=== PATIENT | female | born 1955 | race Caucasian/White ===

== ENCOUNTER 2016-11-13 19:43 | Observation (INO) | payer BC ==
[2016-11-13 19:49] VITALS: BMI 30.9
--- NOTE | 2016-11-13 19:49 | PDOC ---
History of Present Illness - General Chief Complaint: Chest Pain Stated Complaint: CHEST TIGHTNESS Time Seen by Provider: 11/13/16 19:48 - History of Present Illness Initial Comments: 11/13/16 20:15 Patient is a 61 year old female with significant medical hx of possible fibromyalgia who is presenting to the ED with three days of bilateral chest discomfort. The patient's chest discomfort is characterized as a "tightness" that is waxing and waning. Her symptoms worsen when she lies down and relieves when she stands up. The patient denies associative shortness of breath, diaphoresis, injury, or recent heavy exertional activity. Tonight the patient came home from work with a headache that relieved after she took a nap. She decided to come to the ED tonight because her chest pain returned. 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 She complains of loss of appetite for the past three days, but denies any fever, chills, body aches, nausea, vomiting, diarrhea, or changes in urination. Last stress test: two years ago. (Juana Bridges) Past History - Past Medical History Thyroid Disease: No - Immunization History Immunization Up to Date: Yes - Psycho/Social/Smoking Cessation Hx Anxiety: No Suicidal Ideation: No Smoking History: Never smoked Number of Cigarettes Smoked Daily: 0 Hx Alcohol Use: No Substance Use Type: None - Past Medical History Allergies/Adverse Reactions: Allergies Allergy/AdvReac Type Severity Reaction Status Date / Time No Known Allergies Allergy Unverified 01/13/14 06:04 Home Medications: Ambulatory Orders NK [No Known Home Medication] 11/13/16 Review of Systems - Review of Systems Comments:: 11/13/16 20:19 CONSTITUTIONAL: Present: loss of appetite Absent: fever, chills, diaphoresis, generalized weakness, malaise HEENT: Absent: rhinorrhea, nasal congestion, throat pain, throat swelling, difficulty swallowing, mouth swelling, ear pain, eye pain, visual changes CARDIOVASCULAR: Present: chest pain Absent: syncope, palpitations, irregular heart rate, lightheadedness, peripheral edema RESPIRATORY: Absent: cough, shortness of breath, dyspnea with exertion, orthopnea, wheezing, stridor, hemoptysis GASTROINTESTINAL: Absent: abdominal pain, abdominal distension, nausea, vomiting, diarrhea, constipation, melena, hematochezia GENITOURINARY: Absent: dysuria, frequency, urgency, hesitancy, hematuria, flank pain, genital pain MUSCULOSKELETAL: Absent: myalgia, arthralgia, joint swelling SKIN: Absent: rash, itching, pallor HEMATOLOGIC/IMMUNOLOGIC: Absent: easy bleeding, easy bruising, lymphadenopathy, frequent infections ENDOCRINE: Absent: unexplained weight gain, unexplained weight loss, heat intolerance, cold intolerance NEUROLOGIC: Present: headache Absent: focal weakness or paresthesia, dizziness, unsteady gait, seizure, mental status changes, bladder or bowel incontinence. PSYCHIATRIC: Absent: anxiety, depression, suicidal or homicidal ideation, hallucinations (Juana Bridges) *Physical Exam - Vital Signs Last Vital Signs Temp Pulse Resp BP Pulse Ox 97.1 F L 58 L 20 142/70 98 11/13/16 23:42 11/13/16 23:42 11/13/16 23:42 11/13/16 23:42 11/13/16 23:42 - Physical Exam Comments: 11/13/16 20:21 GENERAL: The patient is awake, alert, and fully oriented, in no acute distress. HEAD: Normal with no signs of trauma. EYES: Pupils equal, round and reactive to light, extraocular movements intact, sclera anicteric, conjunctiva clear with no pallor. ENT: Ears normal, nares patent, oropharynx clear without exudates. Moist mucous membranes. NECK: Normal range of motion, supple without lymphadenopathy, JVD, or masses. LUNGS: Breath sounds equal, clear to auscultation bilaterally. No wheeze/ crackles. HEART: Regular rate and rhythm, normal S1 and S2 without murmur or rub. ABDOMEN: Soft/nontender/nondistended. BS wnl. No guarding or rebound. No palpable masses. No hepatosplenomegaly. EXTREMITIES: Normal range of motion, no edema. No clubbing or cyanosis. No cords, erythema, or tenderness. NEUROLOGICAL: Cranial nerves II through XII grossly intact. Normal speech, normal gait. PSYCH: Normal mood, normal affect. SKIN: Warm, Dry, normal turgor, no rashes or lesions noted. (Juana Bridges) Heart Score/ECG Review #1 11/13/16 20:23 Normal sinus rhythm at 63 bpm Normal ECG (Juana Bridges) ED Treatment Course - LABORATORY CBC & Chemistry Diagram: 11/13/16 20:25 11/13/16 20:28 - ADDITIONAL ORDERS Additional order review: Laboratory Results 11/13/16 11/13/16 11/13/16 20:28 20:28 20:25 INR 1.02 Sodium 137 Potassium 4.0 Chloride 105 Carbon Dioxide 27 Anion Gap 5 L BUN 21 H D Creatinine 0.9 Creat Clearance w eGFR > 60 Random Glucose 119 H Calcium 9.5 Total Bilirubin 0.5 AST 31 ALT 26 Alkaline Phosphatase 73 Creatine Kinase 83 Troponin I < 0.03 L Total Protein 7.1 Albumin 3.9 11/13/16 20:25 RBC 5.06 MCV 82.4 MCHC 32.8 RDW 12.9 MPV 7.6 Neutrophils % 51.6 Lymphocytes % 36.8 D Monocytes % 7.6 Eosinophils % 3.1 Basophils % 0.9 - RADIOLOGY Radiology Studies Ordered: Category Date Time Status CHEST X-RAY PORTABLE* [RAD] Stat Radiology 11/13/16 20:15 Taken - Medications Given in the ED: ED Medications Discontinued Medications Generic Name Dose Route Start Last Admin Trade Name Freq PRN Reason Stop Dose Admin Famotidine/Sodium Chloride 50 mls @ 100 mls/hr 11/13/16 20:16 11/13/16 20:33 Pepcid 20 Mg Premixed Ivpb - IVPB 11/13/16 20:45 100 mls/hr ONCE ONE Administration Progress Note - Progress Note Progress Note: Documentation has been prepared under my direction and personally reviewed by me in its entirety. I attest that this documented accurately reflects all work, treatment, procedures and medical decision making performed by me. (Katie Small) Medical Decision Making - Medical Decision Making As noted above, this 61-year-old woman with no significant past medical history presents with a few day history of chest pressure. Sensation has waxed and waned in severity but has been present consistently. 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 No shortness of breath/ diaphoresis noted. Only significant cardiac risk factor is family history. Exam was as noted above. Patient was given Pepcid 20 mg IV Twelve-lead electrocardiogram showed normal sinus rhythm without evidence of acute ST or T-wave abnormalities. Laboratory evaluation was essentially normal with no elevation of cardiac enzymes. Portable chest x-ray showed no acute pathology Patient reported "some improvement" of chest pressure after Pepcid IV but sensation was still present. Although workup including cardiac enzymes is negative up to this point, because of persistence of chest pressure, patient should be admitted for observation/ rule out myocardial ischemia. Patient's PMD does not admit to this hospital. [facility] contacted (). She will admit her to her service as observation patient (Katie Small) *DC/Admit/Observation/Transfer - Discharge Dispostion Admit: Yes Diagnosis at time of Disposition: Chest pain - Discharge Dispostion Condition at time of disposition: Stable Decision to Admit order Date/Time: Decision to Admit Order Category Date Time Status Decision to Admit to Hospital Routine Phy Order 11/13/16 22:20 Ordered - Referrals - Attestations Scribe Attestion: 11/13/16 20:22 Documentation prepared by Juana Bridges, acting as emergency medical technician basic for Katie Small MD. (Juana Bridges)
[2016-11-13] MEDS ORDERED: FAMOTIDINE 20 MG/50 ML IVPB 50 ML IVPB ONE ×2 (20:16→20:29)
[2016-11-13 20:39] LABS: BASOPHIL 0.9 % (0-2.0); EOSINOPHIL 3.1 % (0-4.5); MCHC 32.8 g/dl (32.0-36.0); MEAN CELL VOLUME 82.4 fl (80-96); MEAN PLT VOLUME 7.6 fl (7.5-11.1); NEUTROPHILS 51.6 % (42.8-82.8); PLATELET COUNT 300 K/MM3 (134-434); RDW 12.9 % (11.6-15.6); WHITE BLOOD COUNT 8.9 K/mm3 (4.0-10.0)
[2016-11-13 20:46] LABS: INR 1.02 (0.82-1.09); PROTHROMBIN TIME (PATIENT) 11.1 SEC (10.2-13.0)
[2016-11-13 20:51] LABS: ALBUMIN 3.9 g/dl (3.5-5.0); ALK PHOS 73 U/L (32-92); ANION GAP 5 (8-16); BILIRUBIN,TOTAL 0.5 mg/dl (0.2-1.0); CALCIUM 9.5 mg/dl (8.4-10.2); CO2 27 mmol/L (22-28); CPK(DFH) 83 IU/L (26-140); CREATININE 0.9 mg/dl (0.6-1.3); GLUCOSE,RANDOM 119 mg/dl (74-106); SGOT/AST 31 U/L (10-42); SGPT/ALT 26 U/L (10-40); TOT PROT 7.1 g/dl (6.4-8.3)
[2016-11-13 21:01] LABS: TROPONIN I (DFP) < 0.03 ng/ml (0.03-0.50)
--- NOTE | 2016-11-13 23:02 | HP ---
<Shelbi Garcia - Last Filed: 11/14/16 00:06> CHIEF COMPLAINT: Chest Pressure PCP: Dr. Bowens HISTORY OF PRESENT ILLNESS: The patient is a 61 yo F with a PMHx of questionable fibromyalgia who presented to the ED with epigastric abdominal pain radiating into her chest and across her shoulders today. For the past two days,the patient reports intermittent chest tightness and pressure that is exacerbated while laying supine. She endorses decreased appetite and reported headache prior to presentation. The patient states her chest discomfort progressively worsened today and presents here for further evaluation. She denies headache, dizziness or associated diaphoresis. The patient denies any nausea, vomitting, diarrhea, or constipation. She denies any dysuria, frequency, urgency or hematuria. ER course was notable for: (1) Troponins negative x1 (2) CXR- No acute disease Recent Travel: Denies PAST MEDICAL HISTORY: Fribromyalgia - Pt states she was diagnosed but has no current pain. PAST SURGICAL HISTORY: Benign Breast lump removal Social History: Smoking:Denies Alcohol: Occasional social drinker Drugs: Denies Family History: Mother- at age 86 Lung CA, Parkinson's Disease Father- Father alive age 88 Colon CA, Angina Allergies No Known Allergies Allergy (Unverified 01/13/14 06:04) HOME MEDICATIONS: 3 Medication Instructions Recorded NK [No Known Home Medication] 11/13/16 REVIEW OF SYSTEMS CONSTITUTIONAL: Absent: fever, chills, diaphoresis, generalized weakness, malaise, loss of appetite, weight change HEENT: Absent: rhinorrhea, nasal congestion, throat pain, throat swelling, difficulty swallowing, mouth swelling, ear pain, eye pain, visual changes CARDIOVASCULAR: +chest discomfort Absent: chest pain, syncope, palpitations, irregular heart rate, lightheadedness , peripheral edema RESPIRATORY: Absent: cough, shortness of breath, dyspnea with exertion, orthopnea, wheezing, stridor, hemoptysis GASTROINTESTINAL: +epigastric pain Absent: abdominal pain, abdominal distension, nausea, vomiting, diarrhea, constipation, melena, hematochezia GENITOURINARY: Absent: dysuria, frequency, urgency, hesitancy, hematuria, flank pain, genital pain MUSCULOSKELETAL: Absent: myalgia, arthralgia, joint swelling, back pain, neck pain SKIN: Absent: rash, itching, pallor HEMATOLOGIC/IMMUNOLOGIC: Absent: easy bleeding, easy bruising, lymphadenopathy, frequent infections ENDOCRINE: Absent: unexplained weight gain, unexplained weight loss, heat intolerance, cold intolerance NEUROLOGIC: Absent: headache, focal weakness or paresthesias, dizziness, unsteady gait, seizure, mental status changes, bladder or bowel incontinence PSYCHIATRIC: Absent: anxiety, depression, suicidal or homicidal ideation, hallucinations. PHYSICAL EXAMINATION Vital Signs - 24 hr 3 11/13/16 19:46 Temperature 98.7 F Pulse Rate 78 Respiratory 18 Rate Blood Pressure 159/81 O2 Sat by Pulse 100 Oximetry (%) GENERAL: Awake, alert, and fully oriented, in no acute distress. HEAD: Normal with no signs of trauma. EYES: Pupils equal, round and reactive to light, extraocular movements intact, sclera anicteric, conjunctiva clear. No lid lag. EARS, NOSE, THROAT: Ears normal, nares patent, oropharynx clear without exudates. Moist mucous membranes. NECK: Normal range of motion, supple without lymphadenopathy, JVD, or masses. LUNGS: Breath sounds equal, clear to auscultation bilaterally. No wheezes, and no crackles. No accessory muscle use. HEART: Regular rate and rhythm, normal S1 and S2 without murmur, rub or gallop. ABDOMEN: +Obese. Soft, nontender, not distended, normoactive bowel sounds, no guarding, no rebound, no masses. No hepatomegaly or splenomegaly. MUSCULOSKELETAL: Normal range of motion at all joints. No bony deformities or tenderness. No CVA tenderness. UPPER EXTREMITIES: 2+ pulses, warm, well-perfused. No cyanosis. No clubbing. Cap refill <2 seconds. No peripheral edema. LOWER EXTREMITIES: 2+ pulses, warm, well-perfused. No calf tenderness. No peripheral edema. NEUROLOGICAL: Cranial nerves II-XII intact. Normal speech. Normal gait. PSYCHIATRIC: Cooperative. Good eye contact. Appropriate mood and affect. SKIN: Warm, dry, normal turgor, no rashes or lesions noted. Laboratory Results - last 24 hr 3 11/13/16 11/13/16 11/13/16 20:25 20:25 20:28 WBC 8.9 RBC 5.06 Hgb 13.7 Hct 41.7 MCV 82.4 MCHC 32.8 RDW 12.9 Plt Count 300 MPV 7.6 Neutrophils % 51.6 Lymphocytes % 36.8 D Monocytes % 7.6 Eosinophils % 3.1 Basophils % 0.9 INR 1.02 Sodium 137 Potassium 4.0 Chloride 105 Carbon Dioxide 27 Anion Gap 5 L BUN 21 H D Creatinine 0.9 Creat Clearance w eGFR > 60 Random Glucose 119 H Calcium 9.5 Total Bilirubin 0.5 AST 31 ALT 26 Alkaline Phosphatase 73 Creatine Kinase 83 Troponin I < 0.03 L Total Protein 7.1 Albumin 3.9 Chest Xray No obvious infiltrate or effusions. Official read pending. EKG NSR Rate of 63 QTC- [address] ST-T changes Normal Documentation prepared by Shelbi Garcia, acting as medical assembler for REKHA Vega <Rena Rizvi - Last Filed: 11/14/16 06:41> ASSESSMENT/PLAN: 61yF with a PMHx of questionable fibromyalgia who presented to the ED with epigastric pain radiating into her chest and across her shoulders today. She is being admitted for observation to r/o AL Chest discomfort - troponin neg x 1, trend x 2 more - Cardiac monitoring - if troponin neg and no ectopy on monitor, DC home tomorrow and f/u with PMD for further outpatient workup epigastric pain/?GERD - improved a little with pepcid IV, will start protonix 40mg QD, monitor efficacy DVT PPX - low risk, pt fully ambulatory and expected LOS <48h FEN - tolerating po - Repeat BMP in am - regular diet as tolerated Dispo: Pt currently requires cardiac monitoring. Visit type - Emergency Visit Emergency Visit: Yes ED Registration Date: 11/13/16 Care time: The patient presented to the Emergency Department on the above date and was hospitalized for further evaluation of their emergent condition. - New Patient This patient is new to me today: Yes Date on this admission: 11/13/16 - Critical Care Critical Care patient: No
[2016-11-14 03:38] LABS: TROPONIN I < 0.02 ng/ml (0.00-0.05)
[2016-11-14] MEDS ORDERED: PANTOPRAZOLE SODIUM 100 ML IVPB ONE (08:00)
[2016-11-14 09:16] LABS: EOSINOPHIL 2.7 % (0-4.5); MCH 27.1 pg (25.7-33.7); MCHC 32.5 g/dl (32.0-36.0); MEAN CELL VOLUME 83.5 fl (80-96); MEAN PLT VOLUME 7.7 fl (7.5-11.1); NEUTROPHILS 57.4 % (42.8-82.8); PLATELET COUNT 304 K/MM3 (134-434); WHITE BLOOD COUNT 6.8 K/mm3 (4.0-10.0)
[2016-11-14 09:20] LABS: CPK(DFH) 62 IU/L (26-140)
[2016-11-14 09:23] LABS: CALCIUM 9.7 mg/dl (8.4-10.2); CREATININE 0.9 mg/dl (0.6-1.3); MAGNESIUM 2.1 mg/dL (1.8-2.4); PHOSPHOROUS 3.6 mg/dl (2.5-4.6)
[2016-11-14 10:22] LABS: TROPONIN I (DFP) < 0.03 ng/ml (0.03-0.50)
--- NOTE | 2016-11-14 11:48 | DS ---
Physical Exam: SUBJECTIVE: Patient seen and examined, patient feeling well, reports relief of chest discomfort after Protonix. OBJECTIVE: Vital Signs Period Temp Pulse Resp BP Sys/Tyler Pulse Ox Last 24 Hr 97.1 F-98.1 F 58-62 20-20 141-142/68-70 98-99 PHYSICAL EXAM GENERAL: The patient is awake, alert, and fully oriented, in no acute distress. HEAD: Normal with no signs of trauma. EYES: PERRL, extraocular movements intact, sclera anicteric, conjunctiva clear. ENT: Ears normal, nares patent, oropharynx clear without exudates, moist mucous membranes. NECK: Trachea midline, full range of motion, supple. LUNGS: Breath sounds equal, clear to auscultation bilaterally, no wheezes, no crackles, no accessory muscle use. HEART: Regular rate and rhythm, S1, S2 without murmur, rub or gallop. ABDOMEN: Soft, nontender, nondistended, normoactive bowel sounds, no guarding, no rebound, no hepatosplenomegaly, no masses. EXTREMITIES: 2+ pulses, warm, well-perfused, no edema. NEUROLOGICAL: Cranial nerves II through XII grossly intact. Normal speech, gait not observed. PSYCH: Normal mood, normal affect. SKIN: Warm, dry, normal turgor, no rashes or lesions noted. LABS Laboratory Results - last 24 hr 11/14/16 11/14/16 11/14/16 02:00 02:00 08:16 WBC 6.8 RBC 4.98 Hgb 13.5 Hct 41.6 MCV 83.5 MCHC 32.5 RDW 13.0 Plt Count 304 MPV 7.7 Neutrophils % 57.4 Lymphocytes % 31.1 Monocytes % 7.8 Eosinophils % 2.7 Basophils % 1.0 Sodium Potassium Chloride Carbon Dioxide Anion Gap BUN Creatinine Random Glucose Calcium Phosphorus Magnesium Creatine Kinase Cancelled 69 Troponin I Cancelled < 0.02 11/14/16 11/14/16 08:16 08:16 WBC RBC Hgb Hct MCV MCHC RDW Plt Count MPV Neutrophils % Lymphocytes % Monocytes % Eosinophils % Basophils % Sodium 139 Potassium 4.5 Chloride 105 Carbon Dioxide 27 Anion Gap 7 L BUN 15 D Creatinine 0.9 Random Glucose 107 H Calcium 9.7 Phosphorus 3.6 Magnesium 2.1 Creatine Kinase 62 Troponin I < 0.03 L HOSPITAL COURSE: Date of Admission:11/13/16 Date of Discharge: 11/14/16 Minutes to complete discharge: 45 Discharge Summary Reason For Visit: CHEST TIGHTNESS Current Active Problems Chest pain (Acute) Condition: Stable - Instructions Referrals: STAFF,NOT ON [Primary Care Provider] - - Home Medications Comprehensive Discharge Medication List: Ambulatory Orders NK [No Known Home Medication] 11/13/16
[2016-11-14 12:39] VITALS: BP 139/68; PULSE 68; TEMP 98.5
[2016-11-14] MEDS ORDERED: PANTOPRAZOLE 40 MG TABLET (FP) PO SCH (23:45)
--- NOTE | 2016-11-17 14:43 | EKG ---
Test Reason : Blood Pressure : / mmHG Vent. Rate : 063 BPM Atrial Rate : 063 BPM P-R Int : 138 ms QRS Dur : 084 ms QT Int : 408 ms P-R-T Axes : 047 062 048 degrees QTc Int : 417 ms NORMAL SINUS RHYTHM NORMAL ECG NO PREVIOUS ECGS AVAILABLE Confirmed by CALE SEN MD ([id number]) on 11/17/2016 2:43:36 PM Referred By: MD HANDY Confirmed By:CALE SEN MD
== END 2016-11-14 13:41 | disposition home or self-care (01) ==
LOC: FER 19:43 → FM/S 23:04
PROVIDERS: ADMIT Internal Medicine; ATTEND Nurse Practitioner Family
DX: R07.9 Chest pain, unspecified (principal)
CPT/HCPCS: 36415; 71010-TC; 80048; 80053; 82550; 83735; 84100; 84484; 85025; 85610; 93005; 99285-25; G0378

== ENCOUNTER → 2018-03-15 | Day surgery (SDC) | payer BC ==
[~2018-03-15] MED LIST: MIDAZOLAM HCL 2 MG/2 ML SINGLE DOSE VIAL ONE; PROPOFOL 20 ML ONE; ceFAZolin SODIUM 1 GM VIAL ONE
--- NOTE | 2018-03-16 09:48 | OP ---
DATE OF OPERATION: 03/15/2018 PREOPERATIVE DIAGNOSIS: Left breast mass 12 o'clock, 6 to 7 cm from the nipple. POSTOPERATIVE DIAGNOSIS: Left breast mass 12 o'clock, 6 to 7 cm from the nipple. PROCEDURE PERFORMED: Left ultrasound-guided core biopsy with Bowtie clip placement. SURGEON: Adriano Colindres MD ANESTHESIA: General. ESTIMATED BLOOD LOSS: Minimal. COMPLICATIONS: None. DESCRIPTION OF PROCEDURE: The patient was made aware of the risks and benefits of the procedure and consented. She was placed in the supine position. Under sterile conditions, with 1% lidocaine for local anesthesia, a small cheryl was made in the skin. Using a 10-gauge suction biopsy device with a lateral approach, under ultrasound guidance, multiple cores were obtained and submitted to Pathology. Likewise, under ultrasound guidance, a Bowtie clip was placed into the biopsy region, well tolerated by the patient. Steri-Strips, a sterile dressing as well as manual compression were then applied. The patient tolerated the procedure well. We will contact her with the results. ADRIANO COLINDRES M.D. [id number]
--- NOTE | 2018-03-17 15:04 | PATH ---
Surgical Pathology Report Patient Name: CAM PALMER [facility] [place]. Rec. #: [id number] /Age/Gender: 1955 (Age: 62) / F Account: [id number] Location: [facility] Taken: 03/15/2018 Received: 03/15/2018 Reported: 03/17/2018 Physicians: Adriano Colindres M.D. Specimen(s) Received LEFT BREAST CORE BIOPSY 12:00 N 6-7 CORE BIOPSY Clinical History Nonpalpable lesion Ultrasound findings: Suspicious Final Diagnosis BREAST, LEFT, 12:00, 6-7 CM FN, CORE BIOPSY: BREAST TISSUE SHOWING FIBROADENOMATOID CHANGE, STROMAL FIBROSIS AND FOCAL ATYPICAL DUCTAL HYPERPLASIA (ADH). Electronically Signed Kiki Mccoy M.D. Gross Description Received in formalin labeled "left breast biopsy 12:00, 6-7 cmfn," is a 1.8 x 1.5 x 0.3 cm aggregate of multiple cano-yellow, irregular to cylindrical portions of fibroadipose tissue admixed with blood clot. The formalin is filtered and the specimen is entirely submitted in one cassette. Time to formalin fixation: < 1 minute Total formalin fixation time: Approximately 26 hours. /03/16/2018 saudi03/16/2018
== END | disposition home or self-care (01) ==
LOC: FRADUS-SUR 15:05
PROVIDERS: ATTEND Surgery Surgical Oncology
PROC: 0HBU3ZX Excision of Left Breast, Percutaneous Approach, Diagnostic (ICD-10-PCS; principal; 2018-03-15)
DX: N60.32 Fibrosclerosis of left breast (principal); N60.12 Diffuse cystic mastopathy of left breast; N60.92 Unspecified benign mammary dysplasia of left breast; N63.20 Unspecified lump in the left breast, unspecified quadrant
CPT/HCPCS: 19083; 87899; 88305-TC; A4648

== ENCOUNTER 2018-04-08 08:34 | Day surgery (SDC) | payer BC ==
--- NOTE | 2018-04-01 13:39 | HP ---
Admitting History and Physical - Primary Care Physician PCP: Kam Ro - Admission Chief Complaint: Left breast atypia History of Present Illness: 62 year old postmenapausal female with H/O right breast LCIS whose mammogram was negative 02/2018 and US showed new left breast mass 12:00 7 cm fn birad 4. Left breast us core bx at 12:00 showed atypia 02/2018. History Source: Patient Limitations to Obtaining History: No Limitations - Past Surgical History Additional Past Surgical History: right breast excision LCIS 2009 - Smoking History Smoking history: Never smoked Have you smoked in the past 12 months: No Aproximately how many cigarettes per day: 0 - Alcohol/Substance Use Hx Alcohol Use: No Home Medications - Allergies Allergies/Adverse Reactions: Allergies Allergy/AdvReac Type Severity Reaction Status Date / Time No Known Allergies Allergy Verified 08/29/17 08:39 - Home Medications Home Medications: Ambulatory Orders Diphenhydramine HCl [Benadryl -] 25 mg PO Q6H #28 capsule 08/29/17 Family Disease History - Family Disease History Family Disease History: CA: Father (CRC 60) Physical Examination Constitutional: Yes: Well Nourished Breast(s): Yes: Other (ptotic D cup breasts healed incision right breast no palpable densities or adenopathy bilateral) Problem List - Problems (1) Atypical ductal hyperplasia of left breast Code(s): N60.92 - UNSPECIFIED BENIGN MAMMARY DYSPLASIA OF LEFT BREAST Assessment/Plan Left breast wide excision with mammogram needle localization
[2018-04-02 08:33] VITALS: BMI 31.5
[2018-04-08] MEDS ORDERED: BUPIVACAINE HCL/PF 2.5 MG/ML - 30 ML VIAL IJ ONE (10:59)
[2018-04-08] MEDS ORDERED: PROMETHAZINE HCL 25 MG/1 ML VIAL IVPB PRN (11:48)
[2018-04-08] MEDS ORDERED: oxyCODONE HCL 5 MG TABLET PO PRN ×2 (11:48)
[2018-04-08] MEDS ORDERED: ONDANSETRON 4 MG/2 ML VIAL IVPUSH PRN ×2 (11:48→11:50)
[2018-04-08] MEDS ORDERED: KETOROLAC TROMETHAMINE 30 MG/1 ML VIAL IVPUSH PRN (11:50)
[2018-04-08] MEDS ORDERED: DEXTROSE 5%-0.45% SALINE 1,000 ML IV SCH (12:00)
--- NOTE | 2018-04-08 13:08 | OP ---
DATE OF OPERATION: 04/08/2018 PREOPERATIVE DIAGNOSIS: Left breast atypical duct hyperplasia. POSTOPERATIVE DIAGNOSIS: Left breast atypical duct hyperplasia. PROCEDURE: Left breast wide excision with mammographic needle localization. ANESTHESIA: Local with IV sedation. PRIMARY SURGEON: Kimberly Ro MD HEALTH CARE MANAGER: VALARIE Medina COMPLICATIONS: There were no complications. INDICATIONS: Briefly, the patient is a 62-year-old postmenopausal white female with no family history of breast or ovarian cancer. She underwent the right breast upper outer quadrant wide excision for LCIS back in 2009. She was recently noted to have a new left breast 12 o'clock density on ultrasound measuring about 8 mm 7 cm from the nipple, and underwent an ultrasound-guided core biopsy on March 15, 2018, showing stromal fibrosis and some focal atypical duct hyperplasia. Wide excision was recommended. DESCRIPTION OF PROCEDURE: She was brought in for the procedure on April 08, 2018. She first underwent the needle localization of the clip in radiology and was brought to the holding area. In the holding area, site verification was made and informed consent was obtained. She was brought into the operating room and laid on the OR table in the supine position. Venodynes were placed on the lower extremities. She received a gram of Ancef prior to incision. She underwent IV sedation. The left breast was sterilely prepped and draped in the usual fashion with the wire prepped in the field. Marcaine 0.25% was given for local anesthesia around the needle localization site, and a curvilinear incision was made and dissection was undertaken around the needle localization with the breast tissue was completely removed from around the wire. The specimen was removed and oriented with a long-lateral short-superior suture, and specimen radiograph showed removal of the clip in question. Hemostasis was achieved. The breast tissue was then reapproximated using 2-0 plain suture. The skin was closed using interrupted 3-0 deep dermal Vicryl suture and a running 4-0 subcuticular Biosyn suture. Mastisol and Steri-Strips were applied over the wound with a compressive dressing placed over this. The patient tolerated the procedure well without difficulty. Estimated blood loss was minimal. All sponge and needle counts were correct at the end of the case. The patient will be recovered in the post-anesthesia care unit and discharged home the same day once discharge criteria are met. She is to follow up in the office in 1 week for formal wound pathology check. KIMBERLY RO M.D. [id number]
[2018-04-08 13:22] VITALS: TEMP 97.4
[2018-04-08 14:14] VITALS: BP 138/81; PULSE 50
--- NOTE | 2018-04-12 16:13 | PATH ---
Surgical Pathology Report Patient Name: CAM PALMER [facility]. Rec. #: [id number] /Age/Gender: 1955 (Age: 62) / F Account: [id number] Location[facility] Taken: 04/08/2018 Received: 04/08/2018 Reported: 04/12/2018 Physicians: Kam Ro M.D. Specimen(s) Received LEFT BREAST WIDE EXCISION Clinical History Wide excision for atypia on core Ultrasound findings: Suspicious Final Diagnosis BREAST, LEFT, WIDE EXCISION: BENIGN BREAST TISSUE SHOWING FIBROADENOMATOID CHANGE, STROMAL FIBROSIS, MICROCYST FORMATION, APOCRINE METAPLASIA AND FEW CALCIFICATIONS IN ASSOCIATION WITH BENIGN GLANDULAR PARENCHYMA. NO RESIDUAL ATYPIA IS IDENTIFIED. PRIOR BIOPSY SITE CHANGES ARE PRESENT. Electronically Signed Kiki Mccoy M.D. Gross Description Received in formalin, labeled "left breast wide excision," is a 12 g, 3.5 x 3.0 x 2.1 cm. cano-yellow, irregular, portion of fibroadipose tissue with a needle localization wire present. There is a short suture marking the superior aspect and a long suture marking the lateral aspect, per the surgeon. There is no skin present. The specimen is inked as follows: superior red, medial and lateral green; inferior orange; anterior yellow; deep black. The specimen is serially sectioned from superior to inferior. Sectioning reveals a previous biopsy site measuring 2 x 2 x 1cm, surrounded by fibrous tissue. The remaining breast parenchyma displays multifocal white fibrous tissue. No definitive mass is identified. The specimen is entirely submitted in 9 cassettes as follows: 1,2 biopsy site with lateral and inferior margin; 3,4 anterior and inferior margin. 5,6- lateral and medial margins; 7-8-biopsy site with superior margin; 9- biopsy site with anterior margin. Time to formalin fixation: 5 minutes Total formalin fixation time: Approximately 10 hours SARAH/04/09/2018 deo/04/09/2018
== END 2018-04-08 14:04 | disposition home or self-care (01) ==
LOC: FASU 08:34
PROVIDERS: ATTEND Surgery Surgical Oncology
PROC: 0HBU0ZX Excision of Left Breast, Open Approach, Diagnostic (ICD-10-PCS; principal; 2018-04-08 11:13)
DX: N60.92 Unspecified benign mammary dysplasia of left breast (principal); N60.32 Fibrosclerosis of left breast; N64.89 Other specified disorders of breast; Z85.3 Personal history of malignant neoplasm of breast
CPT/HCPCS: 19281; 88307-TC; 94760

== ENCOUNTER 2021-08-29 20:11 | Emergency (ER) | payer BC ==
[2021-08-29 20:18] VITALS: BP 175/83; PULSE 78; TEMP 97.8; BMI 31.5
[2021-08-29] MEDS ORDERED: predniSONE 20 MG TABLET (UD) PO ONE (20:25)
[2021-08-29] MEDS ORDERED: diphenhydrAMINE HCL 25 MG CAPSULE (FP) PO ONE (20:25)
[2021-08-29] MEDS ORDERED: diphenhydrAMINE HCL 50 MG CAPSULE ONE (20:27)
[2021-08-29] MEDS ORDERED: predniSONE 20 MG TABLET (UD) ONE (20:27)
== END 2021-08-29 21:49 | disposition home or self-care (01) ==
LOC: FER 20:11
DX: R09.89 Other specified symptoms and signs involving the circulatory and respiratory systems (principal); T78.40XA Allergy, unspecified, initial encounter
CPT/HCPCS: 93005; 99283-25

== ENCOUNTER 2021-08-31 11:04 | Emergency (ER) | payer BC ==
[2021-08-31 11:12] VITALS: TEMP 97.9; BMI 28.3
[2021-08-31 12:23] VITALS: BP 159/76; PULSE 65
== END 2021-08-31 12:55 | disposition home or self-care (01) ==
LOC: FER 11:04
PROC: 3E023NZ Introduction of Analgesics, Hypnotics, Sedatives into Muscle, Percutaneous Approach (ICD-10-PCS; principal; 2021-08-31)
DX: T78.40XA Allergy, unspecified, initial encounter (principal)
CPT/HCPCS: 93005; 99284-25; C9803; U0003; U0005

== ENCOUNTER 2023-10-09 04:30 | Inpatient (IN) | payer OTHER, BC ==
[2023-10-07 15:40] VITALS: BMI 29.2
[2023-10-09] MEDS ORDERED: ceFAZolin SODIUM 1 GM VIAL ONE (10:39)
[2023-10-09] MEDS ORDERED: HEPARIN NA (PORCINE) 5,000 UNITS/ML 1ML VIAL ONE ×2 (11:07→13:42)
[2023-10-09] MEDS ORDERED: LIDOCAINE HCL 0.5%, 5 MG/ML (50mL SDVIAL) ONE (11:07)
[2023-10-09] MEDS ORDERED: CEFAZOLIN SODIUM 2 GM in DEXTROSE 5%-WATER 100 ML IVPB ONE (11:15)
[2023-10-09] MEDS ORDERED: DEXAMETHASONE SOD PHOSPHATE 4 MG/1 ML VIAL ONE (13:00)
[2023-10-09] MEDS ORDERED: PROPOFOL 40 ML ONE (13:00)
[2023-10-09] MEDS ORDERED: ONDANSETRON 4 MG/2 ML VIAL ONE (13:00)
[2023-10-09] MEDS ORDERED: SUGAMMADEX SODIUM 200 MG/2 ML VIAL ONE ×2 (13:00→14:19)
[2023-10-09] MEDS ORDERED: ROCURONIUM BROMIDE 50 MG/5 ML SYRINGE ONE (13:00)
[2023-10-09] MEDS ORDERED: MIDAZOLAM HCL 2 MG/2 ML SINGLE DOSE VIAL ONE (13:00)
[2023-10-09] MEDS ORDERED: LIDOCAINE HCL/PF 2% SDV 5ML VIAL ONE (13:00)
[2023-10-09] MEDS ORDERED: LABETALOL HCL 5 MG/1 ML (100MG/20 ML VIAL) ONE (13:04)
[2023-10-09] MEDS ORDERED: ESMOLOL HCL 100,000 MCG/10 ML VIAL ONE (13:04)
[2023-10-09] MEDS ORDERED: niCARdipine HCL 25 MG/10 ML AMPUL IVPB ONE ×2 (13:04→14:12)
[2023-10-09] MEDS ORDERED: NITROGLYCERIN 50 MG/10 ML VIAL IVPB ONE (13:05)
[2023-10-09] MEDS: ceFAZolin SODIUM 1 GM VIAL IVPB ONE (13:25)
[2023-10-09] MEDS: HEPARIN NA (PORCINE) 5,000 UNITS/ML 1ML VIAL SQ ONE ×2 (13:30)
[2023-10-09] MEDS ORDERED: POVIDONE-IODINE OINTMENT 10% - 28.4 GM TUBE ONE (13:37)
[2023-10-09] MEDS: BUPIVACAINE HCL/PF 0.5% (5MG/ML) 10 ML VIAL IJ ONE (14:18)
[2023-10-09] MEDS ORDERED: SODIUM CHLORIDE 0.9% P/F 10 ML VIAL IJ ONE (14:19)
[2023-10-09] MEDS ORDERED: HYDROmorphone HCl 2 MG/ML VIAL ONE (14:19)
[2023-10-09] MEDS ORDERED: hydrALAZINE HCL 20 MG/ML VIAL IVPUSH PRN (15:02)
[2023-10-09] MEDS ORDERED: LACTATED RINGERS SOLUTION 1,000 ML IV SCH (15:15)
[2023-10-09] MEDS: SODIUM CHLORIDE 1,000 ML IV SCH (16:00)
[2023-10-09] MEDS ORDERED: oxyCODONE HCL 5 MG TABLET ONE (17:06)
[2023-10-09] MEDS: oxyCODONE HCL 5 MG TABLET PO PRN (17:09)
[2023-10-09] MEDS: ONDANSETRON 4 MG/2 ML VIAL IVPUSH PRN (19:23)
[2023-10-09] MEDS: CEFAZOLIN 1 GM in DEXTROSE 5%-WATER - 50 ML IVPB SCH (21:12)
[2023-10-09] MEDS: ASPIRIN 81 MG CHEWABLE TABLETS PO SCH (21:12)
[2023-10-09] MEDS: CHLORHEXIDINE GLUCONATE 4% CLEANSER FOR DECOLONIZATION TP SCH (21:13)
[2023-10-09] MEDS: MUPIROCIN 2% TOPICAL OINTMENT FOR DECOLONIZATION NS SCH (21:13)
[2023-10-09] MEDS: ACETAMINOPHEN 1000 MG/100 ML BAG IVPB SCH (23:50)
[2023-10-10 07:21] LABS: BASO % 0.2 % (0-2.0); EOS % 0.1 % (0-4.5); HEMATOCRIT 36.5 % (32.4-45.2); HEMOGLOBIN 11.9 GM/dL (10.7-15.3); LYMPH % 10.8 % (8-40); MCH 28.3 pg (25.7-33.7); MCHC 32.7 g/dl (32.0-36.0); MEAN CELL VOLUME 86.5 fl (80-96); MEAN PLT VOLUME 7.7 fl (7.5-11.1); MONO % 5.8 % (3.8-10.2); NEUT % 83.1 % (42.8-82.8); PLATELET COUNT 269 10^3/uL (134-434); RBC 4.22 M/mm3 (3.60-5.2); RDW 14.7 % (11.6-15.6); WHITE BLOOD COUNT 10.7 K/mm3 (4.0-10.0)
[2023-10-10 07:53] LABS: CHOLESTEROL 158 mg/dL (50-200)
[2023-10-10 07:54] LABS: LDL CHOLESTEROL (ONLY SJRH) 72 mg/dL (5-100)
[2023-10-10 07:56] LABS: HDL CHOLESTEROL 75 mg/dL (40-60)
[2023-10-10] MEDS: ACETAMINOPHEN 500 MG TABLET (FP) PO SCH (14:42)
[2023-10-10] MEDS ORDERED: POLYETHYLENE GLYCOL (HEALTHYLAX) 3350 17 GM PACKET PO PRN (17:37)
[2023-10-10] MEDS: DOCUSATE SODIUM 100 MG CAPSULE (FP) PO SCH (18:42)
[2023-10-10] MEDS: ROSUVASTATIN CA 20 MG TABLET PO SCH (21:38)
[2023-10-10] MEDS ORDERED: ROSUVASTATIN CA 10 MG TABLET PO SCH (22:00)
[2023-10-11 07:30] LABS: HEMATOCRIT 33.5 % (32.4-45.2); HEMOGLOBIN 11.1 GM/dL (10.7-15.3); MCHC 33.2 g/dl (32.0-36.0); MEAN CELL VOLUME 87.5 fl (80-96); MEAN PLT VOLUME 7.9 fl (7.5-11.1); PLATELET COUNT 239 10^3/uL (134-434); RBC 3.83 M/mm3 (3.60-5.2); RDW 14.5 % (11.6-15.6); WHITE BLOOD COUNT 9.4 K/mm3 (4.0-10.0)
[2023-10-11 08:40] LABS: ALBUMIN 2.9 g/dl (3.4-5.0); BILIRUBIN,TOTAL 0.4 mg/dL (0.2-1); BLOOD UREA NITROGEN 16.3 mg/dL (7-18); CALCIUM 8.5 mg/dL (8.5-10.1); CREATININE 0.8 mg/dL (0.55-1.3); MAGNESIUM 2.2 mg/dL (1.8-2.4); POTASSIUM 4.2 mmol/L (3.5-5.1); TOT PROT 5.4 g/dl (6.4-8.2)
[2023-10-11] MEDS ORDERED: oxyCODONE HCL 5 MG TABLET PO PRN (10:24)
[2023-10-11] MEDS ORDERED: SODIUM CHLORIDE 1,000 ML IV SCH (10:24)
[2023-10-11] MEDS: CEFAZOLIN SODIUM 2 GM in DEXTROSE 5%-WATER 100 ML IVPB ONE (11:45)
[2023-10-11] MEDS: ACETAMINOPHEN 500 MG TABLET (FP) PO SCH (13:04)
[2023-10-11 13:29] VITALS: BP 149/54; PULSE 64; RESP 18; TEMP 97.9
[2023-10-12] MEDS ORDERED: ASPIRIN 81 MG CHEWABLE TABLETS PO SCH (10:00)
== END 2023-10-11 14:11 | disposition home or self-care (01) | DRG 39 ==
LOC: J2C 04:30 → JICU 16:49 → J4W 10-11 10:37
PROVIDERS: ADMIT Family Medicine; ATTEND Family Medicine
PROC: 03UH07Z Supplement Right Common Carotid Artery with Autologous Tissue Substitute, Open Approach (ICD-10-PCS; 2023-10-09)
PROC: 03CK0ZZ Extirpation of Matter from Right Internal Carotid Artery, Open Approach (ICD-10-PCS; principal; 2023-10-09 12:00)
DX: I65.21 Occlusion and stenosis of right carotid artery (principal)
CPT/HCPCS: 36415; 80053; 80061; 83036; 83735; 85025; 85027; 86850; 86900; 86901; 88304-TC; 88311-TC; 94760; 97116-GP; J0131; J1644